=== PATIENT | female | born 1970 | race Two or more races ===

== ENCOUNTER 2021-08-11 08:15 | Inpatient (IN) | payer OTHER ==
[~2021-08-11] VITALS: Ht 170.2 cm; Wt 79.8 kg
[2021-08-11] MEDS ORDERED: GABAPENT PO (10:02)
[2021-08-11] MEDS ORDERED: AMITRIPTYLINE H10 MG PO (10:03)
[2021-08-15] MEDS ORDERED: GABAPENTIN100 M2 (13:25)
[2021-08-15] MEDS ORDERED: MEDROXYPRO150 MG/11 (13:25)
[2021-08-15] MEDS ORDERED: DEXAMETHAS10 MG/1 ML (13:26)
[2021-08-15] MEDS ORDERED: DIPHENHYDR50 MG/1 M1 (13:26)
[2021-08-15] MEDS ORDERED: SOD FER GL62.5 MG/5 (13:26)
[2021-08-15] MEDS ORDERED: GABAPENTIN400 MG (13:26)
[2021-08-17] MEDS ORDERED: PERCOCET 5-3251 EACH PO (07:27)
[2021-08-17] MEDS ORDERED: IBUPROFEN800 MG PO (07:27)
[2021-08-17] MEDS ORDERED: ONDANSETRON ODT4 MG PO (07:27)
[2021-08-17] MEDS ORDERED: GABAPENTIN300 MG PO (07:27)
== END 2021-08-17 09:09 | disposition home or self-care (01) | DRG 743 ==
LOC: SURH 08-15 07:00 → OB/GYN 08-15 07:35 → O/R 08-15 07:35 → SURH 08-15 08:15 → OB/GYN 08-15 15:09
PROVIDERS: ADMIT Obstetrics & Gynecology Gynecology; ATTEND Obstetrics & Gynecology Gynecology
PROC: 0UT60ZZ Resection of Left Fallopian Tube, Open Approach (ICD-10-PCS; 2021-08-15)
PROC: 0UT90ZZ Resection of Uterus, Open Approach (ICD-10-PCS; principal; 2021-08-15 07:00)
DX: D25.1 Intramural leiomyoma of uterus (principal); D25.0 Submucous leiomyoma of uterus; D25.2 Subserosal leiomyoma of uterus; N84.0 Polyp of corpus uteri; Z20.822 Contact with and (suspected) exposure to COVID-19